=== PATIENT | female | born 1980 | race Caucasian/White ===

== ENCOUNTER 2020-06-01 14:12 | Outpatient (CLI) | payer SELFPAY ==
--- NOTE | 2020-06-01 14:15 | USCV_ITS ---
Trudy Mendoza Age: 40 Gender: F : 1980 Exam Date: 06/01/2020 14:33 Ordering Phys: Addi Kathleen Technologist: Naomie May Exam Location: [facility] [place]_ Indication: LT LEG SWELLING PROCEDURES: Venous duplex imaging was performed in bilateral lower extremities. Venous duplex imaging was performed in only the left lower extremity. The following venous structures were evaluated: common femoral vein, profunda vein, proximal portion of the greater saphenous vein, superficial femoral vein, and the popliteal vein. In addition, the posterior tibial and peroneal trunk were evaluated. FINDINGS: Normal 2-D Doppler and augmentation and compressibility throughout the lower extremity venous structures. Additional imaging through the proximal calf veins also reveals no thrombus. Limited evaluation of the greater saphenous vein is patent with no thrombus. CONCLUSIONS No DVT left lower extremity. Dr. Brenda Desir DO (Electronically Signed) Final Date: 02 June 2020 10:04 S
[2020-06-01 14:52] LABS: Basophils # 0.1 10^3/uL (0.0-0.1); Basophils % 0.5 %; Eosinophils # 0.2 10^3/uL (0.0-0.8); Eosinophils % 1.6 %; Hematocrit 44.1 % (37.0-47.0); Hemoglobin 14.4 g/dL (11.5-15.3); Lymphocytes # 2.5 10^3/uL (0.8-4.8); Mean Corpuscular HGB Conc 32.7 g/dL (30.0-36.0); Mean Corpuscular Hemoglobin 30.7 pg (28.0-34.0); Mean Platelet Volume 8.8 fL (7.4-10.4); Monocytes # 0.7 10^3/uL (0.2-0.9); Monocytes % 5.8 %; Neutrophils # 8.38 10^3/uL (1.8-7.7); Neutrophils % 70.8 %; Nucleated Red Blood Cells % 0 %; Platelet Count 304 10^3/cmm (130-400); Red Blood Count 4.69 10^6/uL (4.1-5.3); Red Cell Distribution Width 11.9 % (12.1-15.1); White Blood Count 11.8 10^3/uL (4.0-10.0)
[2020-06-01 15:06] LABS: INR 0.95 (0.8-1.2)
[2020-06-01 15:12] LABS: Anion Gap 13.5 (5-19); Blood Urea Nitrogen 9 mg/dL (6-20); Calcium 9.7 mg/dL (8.5-10.5); Carbon Dioxide 27 mmol/L (22-29); Chloride 103 mmol/L (98-107); Glomerular Filtration Rate 80.3 mL/min (90-130); Glucose 107 mg/dL (65-115); Osmolality Calculated 287 mOsm/kg (285-295); Potassium 4.5 mmol/L (3.5-5.1); Sodium 139 mmol/L (136-145)
== END 2020-06-01 14:13 | disposition home or self-care (01) ==
PROVIDERS: Family Provider Nurse Practitioner Family; PCP Nurse Practitioner Family; Visit Provider Emergency Medicine
DX: M79.662 Pain in left lower leg (principal); M79.89 Other specified soft tissue disorders
CPT/HCPCS: 80048; 85025; 85610; 85730; 93971

== ENCOUNTER 2021-02-25 18:53 | Emergency (ER) | payer OTHER, SELFPAY ==
--- NOTE | 2021-02-25 19:00 | XRR_ITS ---
PROCEDURE INFORMATION: Exam: XR Right Shoulder Exam date and time: 02/25/2021 7:00 PM Age: 40 years old Clinical indication: Pain; Shoulder; Right TECHNIQUE: Imaging protocol: XR Right shoulder. Views: 2 or more views. COMPARISON: No relevant prior studies available. FINDINGS: Bones/joints: No acute fracture. No dislocation. Normal bone mineralization. No joint effusion. Joint spaces are maintained. Lungs: Visualized lungs are clear. Soft tissues: No soft tissue swelling. No radiopaque foreign body. XR/XR shoulder RT min 2V* [id number] IMPRESSION: No acute fracture. Followup imaging recommended in 7-14 days if clinical concern for fracture persists.
[2021-02-25 20:06] VITALS: BP 112/73; PULSE 80; RESP 18; TEMP 36.5; O2SAT 99; BMI 21.7
[2021-02-25 20:12] VITALS: PULSE 81
--- NOTE | 2021-02-25 20:27 | W.ED.EXTPRO ---
HPI - Extremity Problem General: Chief complaint: Extremity Injury, Upper Stated complaint: R SHOULDER PAIN Time Seen by Provider: 02/25/21 20:18 History of Present Illness: HPI Narrative: patient comes in for right shoulder pain. patient awakened this morning with pain. 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 Patient appears well, appears in moderate pain. MD Complaint: extremity pain Onset (ago): day(s) Pain Consistency: constant Location: right and upper extremity (shoulder) Quality: aching Radiation: proximal Exacerbating factors: range of motion Associated symptoms: Reports no associated symptoms Context: recent travel Review of Systems General: Reports: 10 or more systems reviewed and unremarkable except in HPI and below Musc: Reports: other (right shoulder pain) PFSH ED PFSH: Family History Mother Migraines Sister Migraines Social History Smoking and tobacco status: current every day smoker cigarettes Alcohol intake: current Alcohol intake frequency: holidays/special occasions only Female Reproductive History: Date of last menstrual period: 02/25/21 Physical Exam Const: COMMON NORMALS: no acute distress and patient oriented x3 GENERAL APPEARANCE: cooperative HENMT: COMMON NORMALS: normocephalic and Normal external nose present HEAD & SCALP: normal to inspection and normocephalic NOSE: Normal external nose present Eye: GENERAL EYE: appearance normal, both eyes and all related structures Neck/C-Spine: COMMON NORMALS: full ROM Chest: COMMONS NORMALS: normal inspection of the chest Resp: COMMON NORMALS: normal respiratory effort EFFORT & INSPECTION: Yes able to speak in complete sentences Cardio: COMMON NORMALS: regular rate and regular rhythm RATE: regular rate RHYTHM: regular rhythm GI: COMMON NORMALS: non-tender : COMMON NORMALS: Yes no CVA tenderness BLADDER/KIDNEY EXAM: Yes no CVA tenderness Back/Pelvis: COMMON NORMALS: no CVA tenderness and thoracic and lumbar spine normal to inspection Extremity: NARRATIVE EXTREMITY EXAM: tenderness right lateral shoulder Neuro: COMMON NORMALS: patient oriented x3 and moves all extremities Psych: COMMON NORMALS: mental status grossly normal and cooperative Skin: COMMON NORMALS: no rashes or lesions noted GENERAL SKIN EXAM: no rashes or lesions noted Course Vital Signs: Vital signs: Vital Signs Temperature 97.7 F 02/25/21 20:06 Pulse Rate 81 02/25/21 20:12 Respiratory Rate 18 02/25/21 20:06 Blood Pressure 112/73 02/25/21 20:06 Pulse Oximetry 99 02/25/21 20:06 MDM - Extremity (Nontraumatic) MDM Narrative: Medical decision making narrative: patient here with right shoulder pain. on exam tenderness to right shoulder lateral side. passive ROM intact. vital signs normal. DDX includes not limited impingement syndrome, rotator cuff strain, bursitis. no sign of serious illness or injury, xray normal. Reviewed exam and recommendation for further treatment Discharge Plan Discharge Patient Disposition: Home Clinical Impression: Impingement syndrome of right shoulder Condition: Stable Prescriptions: New hydrocodone-acetaminophen 5-325 mg tablet 1 tab PO Q8H PRN (Reason: pain) Qty: 6 RF: 0 naproxen 500 mg tablet 500 mg PO BID Qty: 20 RF: 0 No Action methocarbamol [Robaxin-750] 750 mg tablet 750 mg PO TID Qty: 60 RF: 0 naproxen 500 mg tablet 500 mg PO BID PRN (Reason: pain) Qty: 30 RF: 0 Discharge Orders: Discharge ED (Routine); Ordered 02/25/21 Ordered By: Ismael De La Cruz Referrals: Enoc Oakes FNP [Primary Care Provider] - Discharge Diet: Usual diet Discharge Activity: Increase activity as tolerated Patient Instructions: Shoulder Sprain (ED), Opioid Safety Activity Restrictions/Additional Instructions: Activity as tolerated, Gentle stretching and range of motion exercises. Use ice and heat for further pain control. Follow-up as needed. Return to ER for new concerns Coding Level of Care Code ED Construction Management Instructor for Nighat Perez
[2021-02-25] MEDS: ketorolac 30 mg/mL INJ IM (21:37)
[2021-02-25] MEDS: orphenadrine 30 mg/mL Inj 2 mL 60 MG IM (21:38)
[2021-02-25 21:58] VITALS: PULSE 68; RESP 16; O2SAT 99
== END 2021-02-25 21:59 | disposition home or self-care (01) ==
PROVIDERS: Emergency Provider Nurse Practitioner Family; PCP Nurse Practitioner Family
DX: M75.41 Impingement syndrome of right shoulder (principal); F17.210 Nicotine dependence, cigarettes, uncomplicated
CPT/HCPCS: 73030; 96372; 99283; J1885; J2360